=== PATIENT | female | born 1990 | race American Indian/Alaskan Native ===

== ENCOUNTER 2017-07-22 19:23 | Emergency (ER) | payer BC, MEDICAID ==
[2017-07-22 19:47] VITALS: BMI 33.3
[2017-07-22] MEDS ORDERED: Lactated Ringer's 1,000 ML IV SCH (20:30)
[2017-07-22 20:35] LABS: RBC URINE 2 /hpf (0-3); URINE BACTERIA RARE (<OCC); URINE BILIRUBIN NEGATIVE (NEGATIVE); URINE BLOOD NEGATIVE (NEGATIVE); URINE COLOR YELLOW (YELLOW); URINE GLUCOSE (UA) 50 mg/dL (Normal); URINE KETONE NEGATIVE (NEGATIVE); URINE LEUKOCYTE ESTERASE NEG Leu/uL (Negative); URINE PROTEIN NEGATIVE (NEGATIVE); URINE UROBILINOGEN 0.2-1.0 mg/dL (0.2-1.0); WBC URINE 1 /hpf (0-5)
--- NOTE | 2017-07-23 01:01 | OBHP ---
Datetime: 07/22/2017 20:19 IP Adm Impression: Term, intrauterine IP Admit Plan: Observation/Evaluation Admit Comment, IP Provider: 27 yo edc 12/3 by lmp _ 1st trim us presents w/ c/o cramping x3-4hr s, rated as 8/10. She denies srom, bleeding, coitus in past 3days, or decreased fm. states obhx has been remarkable for subchorionic hemorrhage which has resolved pmhx: denies pshx: umbilical hernia repair allerg: morphine hives medic: pnv shx: denies etoh, drugs or tobacco I: Abd cramping- not of ob etiology r/o uti P: ua/ c_s ivf hydration (Annotations: Data stored by CPN on behalf of user) Pelvic Type - PN: Adequate Extremities - PN: Normal Abdomen - PN: Normal Back - PN: Normal Lungs - PN: Normal Neurologic - PN: Normal HEENT - PN: Normal General - PN: Normal FHR - Baseline A Provider: 120 Contraction Comments Provider: no Comments, ACOG Physical Exam: cva- nt Vital Signs Provider: Within Normal Limits IP Chief Complaint: Maternal discomfort NICHD Variability Prov Fetus A: Moderate 6-25bpm NICHD Accel Fetus A IP Provider: 15X15 FHR Category Provider Fetus A: Category I NICHD Decel Fetus A IP Provider: None Dilatation, Provider: 0 Effacement, Provider: 0 Station, Provider: -2/p Genitourinary Exam: Normal
[2017-07-23 03:54] VITALS: BP 107/63; PULSE 85; RESP 18; TEMP 97.8; O2SAT 100
== END 2017-07-22 22:25 | disposition home or self-care (01) ==
LOC: H.EROB2 19:23 → H.EROB 19:23 → H.EROB2 22:25
DX: O26.93 Pregnancy related conditions, unspecified, third trimester (principal); R10.2 Pelvic and perineal pain; Z3A.38 38 weeks gestation of pregnancy; O47.1 False labor at or after 37 completed weeks of gestation
CPT/HCPCS: 81003; 87086; 96360; 99283; J7120

== ENCOUNTER 2017-07-29 19:10 | Emergency (ER) | payer BC ==
[2017-07-29 21:41] VITALS: BMI 35.1
[2017-07-29 22:09] LABS: RBC URINE 2 /hpf (0-3); URINE BACTERIA RARE (<OCC); URINE BILIRUBIN NEGATIVE (NEGATIVE); URINE BLOOD NEGATIVE (NEGATIVE); URINE COLOR YELLOW (YELLOW); URINE GLUCOSE (UA) NEG (Normal); URINE KETONE NEGATIVE (NEGATIVE); URINE LEUKOCYTE ESTERASE NEG Leu/uL (Negative); URINE PROTEIN NEGATIVE (NEGATIVE); URINE UROBILINOGEN 0.2-1.0 mg/dL (0.2-1.0); WBC URINE 2 /hpf (0-5)
--- NOTE | 2017-07-30 00:37 | OBHP ---
Datetime: 07/29/2017 00:31 IP Adm Impression: Term, intrauterine IP Admit Plan: Observation/Evaluation; Discharge home Admit Comment, IP Provider: 27-year-old 011 at 38 weeks and 6 days gestational age presents to OB ED complaining of cramping and contractions and also decreased movement. Patient denies any vaginal bleeding or leakage of fluids. records reviewed. Otherwise, patient without complai nts. Past medical history none Past surgical history umbilical hernia repair Medications vitamins Allergies morphine Obstetrical history full-term 1 Social history no tobacco, no drugs, no alcohol Physical exam: Refer to physical exam findings Biophysical profile: 8 out of 8 NST: Reactive and reassuring Assessment: 27-year-old at 38 weeks and 6 days gestational age. No evidence of labor at this time. Dayne maternal well-being and well-being reassuring at this time. Plan: Patient's primary physician was called. Plan to discharge patient home with labor precautions. Pelvic Type - PN: Adequate Extremities - PN: Normal Abdomen - PN: Normal FHR - Baseline A Provider: 120s Membranes, Provider: Intact Contraction Comments Provider: occasional IP Hx Assessment: The History has been Reviewed and is Current EGA AdmitDate IP: 38.6 Vital Signs Provider: Reviewed; Within Normal Limits IP Chief Complaint: Uterine contractions; Decreased movement NICHD Variability Prov Fetus A: Moderate 6-25bpm NICHD Accel Fetus A IP Provider: 15X15 FHR Category Provider Fetus A: Category I NICHD Decel Fetus A IP Provider: None Dilatation, Provider: 1 Effacement, Provider: long Station, Provider: high Genitourinary Exam: Normal
[2017-07-30 07:37] VITALS: BP 123/80; PULSE 93; RESP 18; TEMP 98.3; O2SAT 99
--- NOTE | 2017-07-30 12:03 | US ---
PROCEDURE: HISTORY: decreased movement COMPARISON: TECHNIQUE: FINDINGS: Single live intrauterine fetus with an estimated gestational age of 38 weeks and 6 days. Cephalic presentation. heart motion of 127 beats per minute. Posterior fundal placenta without evidence of previa. Amniotic fluid index of 15.5 centimeters. biophysical profile score 8/8. IMPRESSION: As above.
== END 2017-07-30 00:10 | disposition home or self-care (01) ==
LOC: H.EROB2 19:10
DX: O47.1 False labor at or after 37 completed weeks of gestation (principal); Z3A.38 38 weeks gestation of pregnancy; O26.93 Pregnancy related conditions, unspecified, third trimester; R10.2 Pelvic and perineal pain

== ENCOUNTER 2017-08-03 02:34 | Inpatient (IN) | payer BC, OTHER ==
[2017-08-03 03:38] VITALS: BMI 34.4
[2017-08-03] MEDS ORDERED: Nalbuphine 20 mg/ml Inj (1 ml) IVP PRN (06:21)
[2017-08-03] MEDS: Lactated Ringer's 1,000 ML IV SCH ×2 (06:45→10:33)
[2017-08-03 08:48] LABS: BASO % 0.1 % (0.0-2.0); EOS % 0.3 % (0.0-4.0); HEMATOCRIT 35.7 % (34.0-47.0); LYMPH % 19.7 % (20.0-40.0); MEAN CELL VOLUME 87.6 fl (81.0-99.0); MEAN CORPUSCULAR HEMOGLOBIN 29.6 pg (27.0-31.0); MEAN CORPUSCULAR HGB CONC 33.9 g/dL (33.0-37.0); MEAN PLATELET VOLUME 8.4 fl (7.2-11.7); MONO # 0.6 K/uL (0.0-0.8); MONO % 5.9 % (0.0-10.0); NEUT # 7.6 K/uL (1.8-7.0); NRBC % 0.1 % (0.0-0.0); RED CELL DISTRIBUTION WIDTH 13.1 % (11.5-14.5); WHITE BLOOD COUNT 10.2 K/uL (4.8-10.8)
[2017-08-03] MEDS ORDERED: Fentanyl/Bupivacaine HCl 250 ML EPI ONE (11:10)
[2017-08-03] MEDS ORDERED: Lactated Ringer's 1,000 ML IV SCH ×2 (11:45→12:45)
[2017-08-03] MEDS ORDERED: Oxytocin 30 UNITS in Sodium Chloride 0.9% 500 ML IV ONE ×2 (12:36→14:26)
--- NOTE | 2017-08-03 13:06 | OBADHP ---
Datetime: 08/03/2017 04:05 Admit Comment, IP Provider: 27 y/o female, , IUP @ 39.4, VU 08/06/17, presents to the [facility] c/o C TX/Pain and Spotting/mucus discharge. Denies LOF, reports good FM and nausea. denies vomiting, urinar y symptoms, cp or dyspnea. PNC: Dr. Jo PNI/PNL: Denies any abnormal labs or issues PMH: Denies PSH: Umbilical Hernia repair 2011 Meds: PNV Allg: Morphin (Hives/rash) SH: denies alcohol, smoking or drug use FH: Denies OB: 1NSVD term, 1SAB Ros; As per HPI VS: 117/82 FHR: 130 Cephalic presentation on U/S 1cm/40/-3 on pelvic exam CTX 8-12 mins apart A/P: 27 y/o female, , IUP @ 39.4, VU 08/06/17, presents to the [facility] c/o CTX/Pain and Spotting/mucus discharge. Denies LOF, reports good FM and nausea. denies vomiting, urinary symptoms, cp or dyspnea. - Admit patient for Observation - Continue FHT/NST/VS - Nubain for pain Case discussed with Dr. Jo Pelvic Type - PN: Adequate Extremities - PN: Normal Abdomen - PN: Normal Back - PN: Normal Breast - PN: Not Done Lungs - PN: Normal Heart - PN: Normal Thyroid - PN: Normal Neurologic - PN: Normal HEENT - PN: Normal General - PN: Normal FHR - Baseline A Provider: 130 Membranes, Provider: Intact Contraction Comments Provider: q5min Comments, ACOG Physical Exam: Cephalic presentation Vital Signs Provider: Reviewed; Within Normal Limits IP Chief Complaint: Uterine contractions; Maternal discomfort; evaluation NICHD Variability Prov Fetus A: Moderate 6-25bpm NICHD Accel Fetus A IP Provider: 15X15 FHR Category Provider Fetus A: Category I NICHD Decel Fetus A IP Provider: None Dilatation, Provider: 1 Effacement, Provider: 40 Station, Provider: -3 Genitourinary Exam: Normal DTRs - PN: Normal EGA AdmitDate IP: 39.4 IP Adm Impression: Term, intrauterine IP Admit Plan: Admit to unit; Initiate labor protocol Datetime: 07/29/2017 00:31 IP Hx Assessment: The History has been Reviewed and is Current
[2017-08-03] MEDS ORDERED: Oxycodone/Acetaminophen 5/325 mg Tab PO PRN ×2 (17:48)
[2017-08-03] MEDS ORDERED: Benzocaine/Menthol SPRAY TOP PRN (17:48)
--- NOTE | 2017-08-03 17:55 | OBDS ---
DELIVERY PERSONNEL Delivery Doctor: Be Hastings MD Anesthesiologist: MATERNAL INFORMATION Delivery Anesthesia: Epidural Medications in Delivery: Pitocin 30u/500LR Estimated Blood Loss (ml): 250ml Maternal Complications: None Provider Comments: delivery of live baby boy 9/9 meconium fluid cord with 3 vessels placenta i ntact first degree tear and repair with 2-0 chromic LABOR SUMMARY EDC: 08/06/2017 00:00 No. Babies in Womb: 1 Attempted: No Labor Anesthesia: None LABOR INFORMATION Reason for Induction: Not Applicable Onset of Labor: 08/03/2017 10:00 Group B Beta Strep: Negative Steroids Given: None Reason Steroids Not Administered: Not Applicable MEMBRANES Membranes Rupture Method: Artificial Rupture of Membranes: 08/03/2017 14:20 Amniotic Fluid Color: Light Meconium Amniotic Fluid Amount: Small Amniotic Fluid Odor: Normal VAGINAL DELIVERY Episiotomy: None Laceration Extension: First Degree Laceration Type: None Laceration Repair Note: repair of first degree tear with 2-0 chromic Sponge Count Correct: Vaginal Sweep Performed Count Comment: correct PRESENTATION/POSITION BABY A Presentation: Cephalic
[2017-08-04] MEDS ORDERED: Multivitamin With Minerals Tab PO SCH (09:00)
[2017-08-04 09:17] LABS: BASO % 0.1 % (0.0-2.0); EOS % 0.1 % (0.0-4.0); HEMATOCRIT 32.3 % (34.0-47.0); LYMPH % 18.1 % (20.0-40.0); MEAN CELL VOLUME 88.9 fl (81.0-99.0); MEAN CORPUSCULAR HEMOGLOBIN 30.1 pg (27.0-31.0); MEAN CORPUSCULAR HGB CONC 33.9 g/dL (33.0-37.0); MEAN PLATELET VOLUME 8.2 fl (7.2-11.7); MONO # 0.6 K/uL (0.0-0.8); MONO % 5.9 % (0.0-10.0); NEUT # 8.2 K/uL (1.8-7.0); NEUT % 75.8 % (50.0-75.0); NRBC % 0.1 % (0.0-0.0); RED CELL DISTRIBUTION WIDTH 13.2 % (11.5-14.5); WHITE BLOOD COUNT 10.8 K/uL (4.8-10.8)
--- NOTE | 2017-08-04 12:45 | OBPPN ---
Datetime: 08/04/2017 12:41 PP Pain Prov: Within normal limits PP Nausea Prov: Denies PP Flatus Prov: Yes PP BM Prov: No PP Breasts Prov: Normal PP Heart Prov: Normal PP Lungs Prov: Normal PP Abdomen/Uterus Prov: Normal PP Lochia Prov: Normal PP Vulva/Perineum Prov: Normal PP CVA Tenderness Prov: Normal PP Extremities Prov: Normal PP Progress Prov: Normal PP Impression Prov: Normal progression PP Plan Prov: Continue present management PP Progress Note Prov: stable ppd1 continue present care IP PP Procedures: None
--- NOTE | 2017-08-05 10:56 | OBDCSUM ---
Datetime: 08/05/2017 10:50 Discharged to, Provider: Home Follow up at, Provider: Disch Instr Activity: Bedrest; May be up to bathroom; May be up for meals; May Shower Disch Instr Diet: Regular Discharge Instructions, Provider: Routine instructions given Discharge Diagnosis, Provider: Term Delivered Discharge Time: 08/05/2017 10:50 Follow up in weeks, Provider: 5-6 weeks Disch Referrals: None Disch Activity Restrictions: No exercising; No lifting; No driving; Minimize walking; Minimize stair -climbing; No sexual activity; Nothing in vagina - [place], tampons, douche Discharge Comment, Provider: mar home today rto 5-6 weeks call office if any problems Contraception after Delivery: Undecided
[2017-08-05 21:32] VITALS: BP 103/52; PULSE 78; RESP 18; TEMP 98.2; O2SAT 100
== END 2017-08-05 14:40 | disposition home or self-care (01) | DRG 775 ==
LOC: H.EROB 02:34 → H.EROB2 02:34 → H.EROB 08:05 → H.L&D 13:06 → H.OB/GYN 20:14
PROVIDERS: ADMIT Specialist; ATTEND Specialist
PROC: 10E0XZZ Delivery of Products of Conception, External Approach (ICD-10-PCS; principal; 2017-08-03)
PROC: 4A1HXCZ Monitoring of Products of Conception, Cardiac Rate, External Approach (ICD-10-PCS; 2017-08-03)
PROC: 0HQ9XZZ Repair Perineum Skin, External Approach (ICD-10-PCS; 2017-08-03)
DX: O70.0 First degree perineal laceration during delivery (principal); Z37.0 Single live birth; Z3A.39 39 weeks gestation of pregnancy